=== PATIENT | female | born 1930 | race Caucasian/White ===

== ENCOUNTER 2016-08-08 14:56 | Outpatient (CLI) | payer MEDICARE, OTHER ==
[2015-08-12 02:29] VITALS: BP 111/68
[2016-08-08 16:06] LABS: BASOPHILS % 0.4 (0.0-1.5); EOSINOPHILS % 1.8 % (0.0-6.8); LYMPHOCYTES # 1.6 # k/uL (0.6-4.0); MEAN CORPUSCULAR HEMOGLOBIN 25.9 pg (28.0-34.0); MONOCYTES # 0.4 # k/uL (0.0-0.9); MONOCYTES % 3.9 % (0.0-11.0); NEUTROPHILS # 8.9 # k/uL (1.4-7.7)
== END 2016-08-08 14:57 ==
LOC: LAB 14:56
PROVIDERS: ATTEND Nurse Practitioner
DX: R05 Cough (principal)
CPT/HCPCS: 36415; 82785; 85025; 86003

== ENCOUNTER 2017-01-07 22:38 | Emergency (ER) | payer MEDICARE, OTHER ==
[2017-01-07] MEDS ORDERED: ASPIRIN 81 MG CHEW TAB PO ONE (23:17)
[2017-01-08 00:07] LABS: EOSINOPHILS % 4.2 % (0.0-6.8); MEAN CORPUSCULAR HEMOGLOBIN 27.3 pg (28.0-34.0); MEAN CORPUSCULAR VOLUME 83.5 fl (80.0-100.0); MONOCYTES % 5.6 % (0.0-11.0); NEUTROPHILS # 5.5 # k/uL (1.4-7.7)
[2017-01-08 00:08] LABS: BASOPHILS % 0.7 (0.0-1.5)
[2017-01-08 00:09] LABS: eGFR (African) > 60; eGFR (Non-African) > 60
--- NOTE | 2017-01-08 00:17 | Diagnostic Imaging Report ---
NETO WILKINS [facility] [address] [facility] [address] [place], [place]. [address] Report Submission Date: Jan 08, 2017 12:14:46 AM CDT Patient Study Name: MYRA REID Date: Jan 07, 2017 11:39:15 PM CDT MRN: [id number] Modality Type: CR Gender: F Description: CHEST : 30 Institution: [facility] Physician: NETO WILKINS Portable chest History: Chest pain Findings: The lungs are hyperinflated. Hazy opacity is present at the right lung base, possibly representing atelectasis, infiltrate, or edema. Cardiomegaly and obesity are observed. Retrocardiac left lower lobe cannot be evaluated due to body habitus and portable technique. Impression: 1. Non diagnostic evaluation of the left lower lobe due to obesity and portable technique. 2. Cardiomegaly. 3. Hyperinflation. 4. Hazy right basilar atelectasis, infiltrate, or edema. Electronically signed on Jan 08, 2017 12:14:46 AM CDT by: Man MACK
--- NOTE | 2017-01-08 00:39 | ED Physician Documentation ---
Chest Pain - HISTORIAN Historian: patient, child - HPI Stated Complaint: Chest pain Chief Complaint: Chest Pain Additional Information: onset chest pain 5 days ago intermittent rated up to 5/10 gone now-comes and goes. pt gradually has become more axious Onset: days ago (5) Timing: gradual onset, resolved on arrival to ED Duration: waxing, waning. denies: persistent Last known Well Date: 12/25/16 Last Known Well Time: 07:25 Context: activity Severity: moderate Quality: pressure, tightness, other (no specific radiation - occ sob no apparent diaphoresis) Chest Pain Radiation: no radiation Chest Pain Signs/Symptoms: nausea, dyspnea. denies: vomiting, diaphoresis, dizziness Relieved By: nothing, rest, aspirin - ROS CONST: none MS/LYMPH: neck pain (has bulging disc) GI/: none EYES/ENT: none SKIN/ENDO: none NEURO/PSYCH: none - PAST HX SD risk factors: hypertension DVT/PE Risk Factors: none. denies: prior DVT, prior PE Neuro deficit: other Allergies/Adverse Reactions: Allergies Allergy/AdvReac Type Severity Reaction Status Date / Time lidocaine Allergy Severe Throat Verified 01/07/17 23:44 Swelling pseudoephedrine HCl Allergy Unknown Verified 01/07/17 23:44 [From Actifed] triprolidine HCl Allergy Unknown Verified 01/07/17 23:44 [From Actifed] aliskiren hemifumarate AdvReac Unknown Nausea/Vomi Verified 01/07/17 23:44 [From Tekturna] ting amlodipine AdvReac Unknown Headache Verified 01/07/17 23:44 metoprolol AdvReac Unknown N/V/D Verified 01/07/17 23:44 Home Medications: Ambulatory Orders Medication Instructions Recorded Albuterol Sulfate [ProAir 1 puff INH PRN PRN 01/07/17 RespiClick] Carvedilol [Coreg] 3.125 mg PO BID 01/07/17 Fluticasone Propionate [Flonase] 1 spray PRN 01/07/17 Hydrochlorothiazide [Hydrodiuril] 12.5 mg PO QDAY 01/07/17 Losartan Potassium [Cozaar] 25 mg PO QDAY 01/07/17 Mometasone/Formoterol [Dulera 100 13 gm IH QDAY 01/07/17 Mcg/5 Mcg Inhaler] Montelukast Sodium [Singulair] 10 mg PO HS 01/07/17 Multivitamin [Daily Multiple 1 each PO QDAY 01/07/17 Vitamin] Sertraline HCl [Zoloft] 25 mg PO BID 01/07/17 Sod Chlor&Bicarb/Squeez Bottle 1 each NS PRN 01/07/17 [Neilmed Sinus Rinse Comp Kit] Vitamin B Complex [Balanced B-100] 1 each PO QDAY 01/07/17 - SOCIAL HX Smoking History: non-smoker Alcohol Use: none Drug Use: none - FAMILY HX Family HX: none. denies: CAD under 55, CAD over 55 - VITAL SIGNS Vital Signs: Vital Signs Temp Pulse Resp BP Pulse Ox 98.2 F 66 18 182/80 99 01/07/17 23:12 01/07/17 23:12 01/07/17 23:12 01/07/17 23:12 01/07/17 23:12 ED Results Lab/Radiology - Radiology Radiology Impressions: cardiomegally pooss mild basal infiltrate - Orders Orders: ED Orders Category Date Time Status Continuous Pulse Oximetry Q30M Care 01/07/17 23:17 Ordered Aspirin Med 01/07/17 23:17 Once 324 mg PO NOW ONE Oxygen Daily Oxygen 01/07/17 23:30 Ordered Chest Pain Physical Exam - EXAM General Appearance: mild distress EENT: eye inspection normal Neck: nml inspection, no carotid bruit. No: lymphadenopathy, subcutaneous emphysema Respiratory: no resp. distress, chest non-tender, nml breath sounds. No: decreased air movement, wheezes, rales, rhonchi CVS: reg. rate & rhythm, no murmur. No: irregularly irreg. rhythm, frequent extrasystoles, tachycardia Abdomen: soft, non-tender Extremities: non-tender, normal range of motion, edema (very mild) Neuro: oriented X3, motor nml, sensation nml, mood/affect nml Discharge Clincal Impression: Atypical chest pain Referrals: Bren Long MD [Primary Care Provider] - 2 Days Home Medications: Ambulatory Orders Albuterol Sulfate [ProAir RespiClick] 1 puff INH PRN PRN 01/07/17 Carvedilol [Coreg] 3.125 mg PO BID 01/07/17 Fluticasone Propionate [Flonase] 1 spray PRN 01/07/17 Hydrochlorothiazide [Hydrodiuril] 12.5 mg PO QDAY 01/07/17 Losartan Potassium [Cozaar] 25 mg PO QDAY 01/07/17 Mometasone/Formoterol [Dulera 100 Mcg/5 Mcg Inhaler] 13 gm IH QDAY 01/07/17 Montelukast Sodium [Singulair] 10 mg PO HS 01/07/17 Multivitamin [Daily Multiple Vitamin] 1 each PO QDAY 01/07/17 Sertraline HCl [Zoloft] 25 mg PO BID 01/07/17 Sod Chlor&Bicarb/Squeez Bottle [Neilmed Sinus Rinse Comp Kit] 1 each NS PRN 10/21 Vitamin B Complex [Balanced B-100] 1 each PO QDAY 01/07/17 Condition: Good Disposition: 01 HOME, SELF-CARE Decision to Admit: NO Decision Time: 00:37
[2017-01-08 01:01] VITALS: BP 144/60
== END 2017-01-08 00:52 | disposition home or self-care (01) ==
LOC: ED 22:38
DX: R07.89 Other chest pain (principal)
CPT/HCPCS: 71010; 80053; 82550; 82553; 84484; 85025; 99283; S1016

== ENCOUNTER 2017-04-02 11:34 | Outpatient (CLI) | payer MEDICARE, OTHER ==
--- NOTE | 2017-04-03 14:21 | OP Clinic Progress Note ---
REASON FOR VISIT: This 86-year-old lady has had bilateral cerumen impactions. She has been putting Murine Drops in the right ear. She has much poorer hearing in the right ear than in the left ear. Under the microscope, I debrided and cleaned cerumen impactions out of both ears. The left ear is dry and a little more lateral and much less difficulty taking it out. She has washed the cerumen impaction down on the right eardrum and took several debridements and cleanings at this one sitting under the microscope using alcohol rinses and washings and a number 7 . After this, patient was clearly able to hear much better. I could see both eardrums and both canals I think are free of any infection. PLAN: She may return on a p.r.n. basis, but otherwise, just return to the care of Dr. Bren Long. cc: Dr. Bren MACK
== END 2017-04-02 11:35 ==
LOC: ENT 11:34
PROVIDERS: ATTEND Otolaryngology
DX: H61.23 Impacted cerumen, bilateral (principal)
CPT/HCPCS: 69210; G0463

== ENCOUNTER 2017-09-05 13:47 | Outpatient (CLI) | payer MEDICARE, OTHER ==
[2017-09-05 16:07] LABS: eGFR (African) > 60; eGFR (Non-African) > 60
== END 2017-09-05 13:50 ==
LOC: RT 13:47
PROVIDERS: ATTEND Physician Assistant
DX: R00.2 Palpitations (principal)
CPT/HCPCS: 36415; 80048; 83880

== ENCOUNTER 2018-10-25 11:55 | Emergency (ER) | payer MEDICARE, OTHER ==
--- NOTE | 2018-10-25 12:00 | ED Physician Documentation ---
Upper Respiratory Symptoms - HISTORIAN Historian: patient - HPI Stated Complaint: cough and chest pain with sweating Chief Complaint: Chest Pain Onset: days ago (6) Duration: intermittent episodes Severity: mild Associated Symptoms: sweating, productive cough. denies: fever, chills Worsened by Deep Breath: No Further Comments: yes (reports cough x 1 week with some mild chest tightness with cough she does have COPD and she takes her inhalers "Sometimes" Denies a fever. She started with a sore throat. Today in rastafarian the cough did lead her to think her chest pain could be heart related and she started to feel that her reflux was acting up so she did take her omeprazole (she is due to take daily but only takes as needed) she now has no chest pain but would like to make sure it is not her heart. No chest pain although she reports she is feeling "Sweaty ") - ROS CONST/EYES: weakness CVS/RESP: chest pain. denies: shortness of breath, palpitations LYMPH: denies: leg swelling, rash, ankle swelling GI/: none. denies: nausea NEURO/PSYCH: denies: fainting, dizziness, confusion, anxiety, depression - PAST HX Lung Disease: COPD PE Risk Factors: hypertension Immunizations: UTD Allergies/Adverse Reactions: Allergies Allergy/AdvReac Type Severity Reaction Status Date / Time lidocaine Allergy Severe Throat Verified 10/25/18 13:22 Swelling pseudoephedrine HCl Allergy Unknown Verified 10/25/18 13:22 [From Actifed] triprolidine HCl Allergy Unknown Verified 10/25/18 13:22 [From Actifed] aliskiren hemifumarate AdvReac Unknown Nausea/Vomi Verified 10/25/18 13:22 [From Tekturna] ting amlodipine AdvReac Unknown Headache Verified 10/25/18 13:22 metoprolol AdvReac Unknown N/V/D Verified 10/25/18 13:22 pseudoephedrine HCl Allergy Uncoded 10/25/18 13:22 triprolidine HCl Allergy Uncoded 10/25/18 13:22 Home Medications: Ambulatory Orders Medication Instructions Recorded Mometasone/Formoterol [Dulera 100 13 gm IH QDAY 01/07/17 Mcg/5 Mcg Inhaler] Montelukast Sodium [Singulair] 10 mg PO HS 07/04/17 Multivitamin [Daily Multiple 1 each PO QDAY 01/07/17 Vitamin] - SOCIAL HX Smoking History: non-smoker Alcohol Use: none Drug Use: none - FAMILY HX Family History: none - VITAL SIGNS Vital Signs: Vital Signs Temp Pulse Resp BP Pulse Ox 61 144/60 95 10/25/18 13:30 01/08/17 00:55 10/25/18 13:30 - REVIEWED ASSESSMENTS Nursing Assessment Reviewed: Yes Vitals Reviewed: Yes ED Results Lab/Radiology - Lab Results Lab Results: Lab Results 10/25/18 10/25/18 10/25/18 12:30 12:30 12:30 WBC RBC Hgb Hct MCV MCH MCHC RDW Plt Count Neut % (Auto) Lymph % (Auto) Sully % (Auto) Eos % (Auto) Baso % (Auto) Neut # (Auto) Lymph # (Auto) Sully # (Auto) Eos # (Auto) Baso # (Auto) Sodium 139 mmol/L mmol/L (137-145) Potassium 4.2 mmol/L mmol/L (3.5-5.1) Chloride 102 mmol/L mmol/L (98-107) Carbon Dioxide 30 mmol/L mmol/L (22-30) BUN 20 mg/dL H mg/dL (7-17) Creatinine 0.79 mg/dL mg/dL (0.52-1.04) Estimated Creat Clear 76 Est GFR ( Amer) > 60 (60 - ) Est GFR (Non-Af Amer) > 60 (60 - ) Glucose 90 mg/dL mg/dL (74-106) Calcium 9.9 mg/dL mg/dL (8.4-10.2) Total Bilirubin 0.3 mg/dL mg/dL (0.2-1.3) AST 37 U/L U/L (15-46) ALT 23 U/L U/L (0-35) Alkaline Phosphatase 81 U/L U/L (38-126) Troponin I 0.022 ng/mL ng/mL (0.012-0.034) NT-Pro-B Natriuret Pep 1480.0 pg/mL H pg/mL (11.1-450.0) Total Protein 7.7 g/dL g/dL (6.3-8.2) Albumin 4.2 g/dL g/dL (3.5-5.0) 10/25/18 12:30 WBC 7.10 K/ul K/ul (4.00-12.00) RBC 4.82 M/ul M/ul (3.90-5.20) Hgb 13.7 g/dL g/dL (11.5-16.0) Hct 39.9 % % (34.5-46.5) MCV 83.0 fl fl (80.0-100.0) MCH 28.5 pg pg (28.0-34.0) MCHC 34.4 g/dL g/dL (30.0-36.0) RDW 13.7 % % (11.3-14.3) Plt Count 227 K/mm3 K/mm3 (130-400) Neut % (Auto) 65.4 % % (39.0-79.0) Lymph % (Auto) 23.8 % % (16.0-50.0) Sully % (Auto) 5.5 % % (0.0-11.0) Eos % (Auto) 4.2 % % (0.0-6.8) Baso % (Auto) 1.1 % % (0.0-1.5) Neut # (Auto) 46.5 # k/uL H # k/uL (1.4-7.7) Lymph # (Auto) 1.7 # k/uL # k/uL (0.6-4.0) Sully # (Auto) 0.4 # k/uL # k/uL (0.0-0.9) Eos # (Auto) 0.3 # k/uL # k/uL (0.0-0.6) Baso # (Auto) 0.1 # k/uL # k/uL (0.0-0.5) Sodium Potassium Chloride Carbon Dioxide BUN Creatinine Estimated Creat Clear Est GFR ( Amer) Est GFR (Non-Af Amer) Glucose Calcium Total Bilirubin AST ALT Alkaline Phosphatase Troponin I NT-Pro-B Natriuret Pep Total Protein Albumin - Radiology Radiology Impressions: Portable chest History: Sudden onset chest pain Portable chest dated October 25, 2018 is without prior radiographs for comparison. There is mild cardiomegaly with left ventricular enlargement. Pulmonary vascularity is normal. Lungs are clear. Impression: Mild cardiomegaly with left ventricular enlargement. No active disease. Electronically signed on Oct 25, 2018 1:05:19 PM CDT by: Dana Smith - Orders Orders: ED Orders Category Date Time Status Continuous EKG monitoring Q30M Care 10/25/18 12:25 Active Continuous Pulse Oximetry Q30M Care 10/25/18 12:[address] IV Lock 1T Care 10/25/18 12:25 Active CHEST 1VIEW [RAD] Stat Exams 10/25/18 Completed BNP [NTBNP] Stat Lab 10/25/18 12:30 Completed CBC/PLATELET/DIFF Routine Lab 10/25/18 12:30 Completed CMP Routine Lab 10/25/18 12:30 Completed TROPONIN I Stat Lab 10/25/18 12:30 Completed Aspirin [[place]] Med 10/25/18 12:24 Discontinued 324 mg PO NOW ONE Oxygen Daily Oxygen 10/25/18 12:30 Ordered EKG WITH COMPARISON Stat Ther 10/25/18 12:25 Ordered Upper Respiratory Symptoms - EXAM General Appearance: no acute distress, alert EENT: eyes nml inspection, nml ENT inspection, ear nml, pain over sinuses Neck: normal inspection Respiratory: no resp. distress, breath sounds nml, no pain on inspiration Abdomen: non-tender, no organomegaly, nml bowel sounds CVS: reg rate & rhythm, heart sounds normal, equal pulses Skin: color nml, no rash, warm,dry Extremities: non-tender Neuro/Psych: oriented x3 Discharge Clincal Impression: CHF (congestive heart failure) Qualifiers: Heart failure type: unspecified Heart failure chronicity: acute Qualified Code(s): I50.9 - Heart failure, unspecified Referrals: Bren Long MD [Primary Care Provider] - 2 Days Additional Instructions: 1. Change HCTZ to 25 mg BID for [address] Long in AM for follow up 3. Return to ER for any added concerns Condition: Stable Disposition: 01 HOME, SELF-CARE Decision to Admit: NO Date of Decison to Admit: 10/25/18 Decision Time: 13:39
[2018-10-25] MEDS: ASPIRIN 81 MG CHEW TAB PO ONE (12:40)
[2018-10-25 12:50] LABS: BASOPHILS % 1.1 % (0.0-1.5); EOSINOPHILS % 4.2 % (0.0-6.8); MEAN CORPUSCULAR HEMOGLOBIN 28.5 pg (28.0-34.0); MONOCYTES % 5.5 % (0.0-11.0)
--- NOTE | 2018-10-25 13:09 | Diagnostic Imaging Report ---
LUIS DING [facility] [address] [facility] [address] [place], [place]. [address] Report Submission Date: Oct 25, 2018 1:05:19 PM CDT Patient Study Name: MYRA REID Date: Oct 25, 2018 12:35:23 PM CDT Modality Type: DX Gender: F Description: CHEST 1VIEW : 30 Institution: [facility] Physician: LUIS DING Portable chest History: Sudden onset chest pain Portable chest dated October 25, 2018 is without prior radiographs for comparison. There is mild cardiomegaly with left ventricular enlargement. Pulmonary vascularity is normal. Lungs are clear. Impression: Mild cardiomegaly with left ventricular enlargement. No active disease. Electronically signed on Oct 25, 2018 1:05:19 PM CDT by: Dana MACK
[2018-10-25 13:29] LABS: eGFR (Non-African) > 60
[2018-10-25 13:57] VITALS: BP 137/65
[2018-10-25 18:49] LABS: NEUTROPHILS # 4.7 # k/uL (1.4-7.7)
== END 2018-10-25 13:54 | disposition home or self-care (01) ==
LOC: ED 11:55
DX: I50.9 Heart failure, unspecified (principal)
CPT/HCPCS: 36415; 71045; 80053; 83880; 84484; 85025; 99283; 99284; S1016

== ENCOUNTER 2019-06-02 15:03 | Outpatient (CLI) | payer MEDICARE, OTHER ==
[2019-06-02 15:27] LABS: BASOPHILS % 0.3 % (0.0-1.5); NEUTROPHILS # 6.5 # k/uL (1.4-7.7)
[2019-06-02 15:32] LABS: eGFR (Non-African) > 60
== END 2019-06-02 15:08 ==
LOC: LAB 15:03
PROVIDERS: ATTEND Family Medicine
DX: R19.7 Diarrhea, unspecified (principal)
CPT/HCPCS: 36415; 80053; 85025

== ENCOUNTER 2019-06-15 12:17 | Outpatient (CLI) | payer MEDICARE, OTHER | END 2019-06-15 12:22 | LOC: LAB 12:17 | PROVIDERS: ATTEND Family Medicine | DX: R19.7 Diarrhea, unspecified (principal) | CPT/HCPCS: 87493 ==